=== PATIENT | female | born 1960 | race Caucasian/White ===

== ENCOUNTER → 2016-03-14 | Outpatient (CLI) | payer BC ==
[~2016-03-14] MED LIST: ADVIL200 MG OR; GERITOL PO; MAG-OX 400MG T400 MG PO; ROPINIROLE 0.0.25 MG PO
--- NOTE | 2016-03-18 09:56 | RADIOLOGY REPORT PS360 ---
DIG MAMM-SCREEN ZOILA W/CAD CAD Screening COMPARISON: Digital mammograms 01/27/2015 and postbiopsy mammogram left breast 03/10/2015 and 6 month follow-up mammogram left breast 09/09/2015 INDICATION: There is no personal or family history of breast cancer. There is been previous mammotome biopsy left breast for benign disease. TECHNIQUE: Standard CC and MLO images were obtained. R2 CAD reviewed. FINDINGS: Mild to moderate fibroglandular densities are seen in the subareolar regions of both breasts more prominent right than left as noted previously. A biopsy clip is seen left breast. There are couple of benign-appearing calcifications in each breast. There is no suspicious lesion and there are no suspicious microcalcifications. IMPRESSION: Fibrofatty parenchyma no suspicious lesion seen recommend yearly follow-up BI-RADS CATEGORY: 2_Benign RECOMMENDED FOLLOWUP: 12M 12 MONTH FOLLOW-UP (A letter has been sent to the patient regarding results of the study.)
== END ==
LOC: RAD 03-13 15:15
DX: R92.8 Other abnormal and inconclusive findings on diagnostic imaging of breast (principal)
CPT/HCPCS: G0202

== ENCOUNTER → 2016-05-12 | Outpatient (CLI) | payer BC ==
[2016-05-12 10:15] LABS: HEMOGLOBIN 15.4 g/dL (12.2-16.2); LYMPH % 25.8 % (10-50.0)
[2016-05-12 10:56] LABS: BUN 18 mg/dL (7-18)
[2016-05-12 10:58] LABS: GFR (ESTIMATED) 104 ML/MIN (59-)
--- NOTE | 2016-05-12 12:08 | RADIOLOGY REPORT PS360 ---
CHEST(2 VIEWS-NOT PORTABLE) HISTORY: DYSPNEA ON EXERTION ORDERING PHYSICIAN: Edi Thomas MD PATIENT AGE: 56 years COMPARISON: None available FINDINGS: The cardiomediastinal silhouette and pulmonary vascularity are within normal limits. The lungs are clear without infiltrates, suspicious nodules, or pleural effusions. No acute bony abnormalities. IMPRESSION: Negative chest, no acute finding
== END ==
LOC: LAB 10:07
PROVIDERS: Internal Medicine Adolescent Medicine
DX: M17.0 Bilateral primary osteoarthritis of knee (principal); R06.09 Other forms of dyspnea; Z01.818 Encounter for other preprocedural examination